=== PATIENT | male | born 1995 ===

== ENCOUNTER 2016-09-07 09:52 | Emergency (ER) | payer SELFPAY | END 2016-09-07 12:39 | disposition home or self-care (01) | LOC: D.ER 09:52 | DX: S06.0X9A Concussion with loss of consciousness of unspecified duration, initial encounter (principal); X58.XXXA Exposure to other specified factors, initial encounter; Y93.89 Activity, other specified; Y92.89 Other specified places as the place of occurrence of the external cause; S40.021A Contusion of right upper arm, initial encounter; F17.200 Nicotine dependence, unspecified, uncomplicated ==